=== PATIENT | male | born 1985 | race African-American/Black ===

== ENCOUNTER 2020-08-21 03:29 | Emergency (ER) | payer OTHER ==
[~2020-08-21] VITALS: Ht 175.3 cm; Wt 72.6 kg
[2020-08-21 03:33] VITALS: BP 100/60
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
--- NOTE | 2020-08-21 04:15 | NUR ---
ELOPEMENT: pt did not want to wait for xray, pt refused to sign AMA paperwork and refused to speak with EDMD. Pt walked out of ED.
== END 2020-08-21 04:15 | disposition home or self-care (01) ==
LOC: EMR 03:59
DX: M79.662 Pain in left lower leg (principal); Z87.81 Personal history of (healed) traumatic fracture; Z91.018 Allergy to other foods
CPT/HCPCS: 99281